=== PATIENT | female | born 1955 | race Caucasian/White ===

== ENCOUNTER 2023-01-25 06:03 | Emergency (ER) | payer MEDICARE, OTHER ==
[2023-01-25] MEDS ORDERED: solu-MEDROL 125 MG, Sterile H2O 10 ml 2 ML IV ONE ×2 (06:20)
[2023-01-25] MEDS ORDERED: Sodium Chloride 0.9% 1000 ML 1,000 ML IV STA (06:20)
[2023-01-25] MEDS ORDERED: PROVENTIL 2.5 MG/3 ML NEB IH ONE ×2 (06:20→06:37)
[2023-01-25] MEDS ORDERED: Sterile H2O 10 ml IJ ONE (06:29)
[2023-01-25] MEDS ORDERED: solu-MEDROL ONE (06:29)
[2023-01-25] MEDS ORDERED: Sodium Chloride 0.9% 1000 ML 1,000 ML ONE (06:30)
--- NOTE | 2023-01-25 06:31 | ERPHSYRPT ---
- History of Present Illness Source: patient Exam Limitations: no limitations Patient Subjective Stated Complaint: Pt reports she has been receiving [place] IV antibiotics via outpatient center at [facility] due to having gram negative pneumonia, unsure of the exact name of the bacteria. Infusions started on 01/21/23 and is also receiving inhaled tobramycin twice a day. She is being treated by Dr Rosa's PARACH[employer]OLDER Hannah Salazar. Feels she has continued to get weak and this morning couldn't hardly get into the car. Triage Nursing Assessment: Pt alert and oriented x3. No apparent respiratory distress. Wheeled to ED cot, transfered from wheelchair to cot with slow/weak gait. Skin w/p/d. Inspiratory and expiratory wheezing auscultated posteriorly throughout bilateral lungs. Hx Tetanus, Diphtheria Vaccination/Date Given: Yes Hx Influenza Vaccination/Date Given: No Hx Pneumococcal Vaccination/Date Given: Yes <BUDDY NJ - Last Filed: 01/25/23 06:46> <SHIVANI FRANCISCO - Last Filed: 01/25/23 09:25> - History of Present Illness Time Seen by Provider: 01/25/23 06:05 Physician History: Patient is here from outpatient infusion center. Patient currently being treated for a gram negative infection of some type. She is receiving IV ertapenem and nebulized tobramycin. This is all being run by a nurse practit constantino out of [facility]. Unclear on exact history as we have no records on this patient. Patient is from [place] and this is the closest placed to drive to. Therefore, we do not have any information on why these antibiotics are being selected, what the actual bacteria is, patient's history. Patient today is on day 5 of her IV antibiotic infusion. She presents to the emergency department from outpatient infusion center for weakness. Her and her adult daughter state that they just do not feel she is getting any better. They feel that she had trouble getting to the car today. As I walk in the room patient is wheezy, resting comfortably on 2 L of oxygen. She is usually on 2 L of oxygen at home. Patient states that she has a greater than 80-year pack history of smoking. (BUDDY NJ) Allergies/Adverse Reactions: No Known Drug Allergies Allergy (Unverified 01/25/23 06:06) Home Medications: ALPRAZolam 1 MG [Xanax 1 mg] 1 mg PO TID 01/25/23 [History] Bupropion HCl Xl 150 mg [Wellbutrin XL 150 MG] 300 mg PO DAILY 01/25/23 [History] Fluticasone/Umeclidin/Vilanter [Trelegy Ellipta 100-62.5-25] See Rx Instructions .ROUTE .COMPLEX 01/25/23 [History] Ipratropium/Albuterol Sulfate [Iprat-Albut 0.5-3(2.5) mg/3 ml] 1 neb IH Q4H 01/25/23 [History] Venlafaxine HCl 37.5 mg [Effexor 37.5 mg] See Rx Instructions .ROUTE .COMPLEX 01/25/23 [History] Travel Risk - International Travel Have you traveled outside of the country in past 3 weeks: No - Coronavirus Screening Are you exhibiting any of the following symptoms?: No Close contact with a COVID-19 positive Pt in past 14-21 Days: No - Vaccine Status Have you recieved a Covid-19 vaccination: Yes Field Support Representative: Moderna - Vaccination Dates Date of 2cond Vaccination (if applicable): ? <BUDDY NJ - Last Filed: 01/25/23 06:46> - Review of Systems Constitutional: No Fever, No Chills Eyes: No Symptoms Ears, Nose, & Throat: No Symptoms Respiratory: Dyspnea, Wheezing, No Cough Cardiac: No Chest Pain, No Edema, No Syncope Abdominal/Gastrointestinal: No Abdominal Pain, No Nausea, No Vomiting, No Diarrhea Genitourinary Symptoms: No Dysuria Musculoskeletal: No Back Pain, No Neck Pain Skin: No Rash Neurological: No Dizziness, No Focal Weakness, No Sensory Changes Psychological: No Symptoms Endocrine: No Symptoms All Other Systems: Reviewed and Negative <BUDDY NJ - Last Filed: 01/25/23 06:46> - Past Medical History Pertinent Past Medical History: Yes Neurological History: No Pertinent History ENT History: No Pertinent History Cardiac History: High Cholesterol, Hypertension Respiratory History: COPD, Pneumonia Endocrine Medical History: No Pertinent History Musculoskeletal History: Arthritis, Osteoporosis GI Medical History: No Pertinent History History: No Pertinent History Psycho-Social History: Anxiety, Depression Female Reproductive Disorders: No Pertinent History - Past Surgical History Past Surgical History: Yes Neuro Surgical History: No Pertinent History Cardiac: No Pertinent History Respiratory: No Pertinent History Gastrointestinal: Appendectomy, Hernia Repair Genitourinary: No Pertinent History Musculoskeletal: Joint Replacement, Orthopedic Surgery Female Surgical History: No Pertinent History Other Surgical History: Left knee. bilateral wrists. right shoulder replaced - Social History Smoking Status: Former smoker How long have you smoked: 45 years Exposure to second hand smoke: No Drug Use: none Patient Lives Alone: Yes <BUDDY NJ - Last Filed: 01/25/23 06:46> - Physical Exam General Appearance: no apparent distress, alert Eye Exam: PERRL/EOMI, eyes nml inspection Ears, Nose, Throat Exam: normal ENT inspection, TMs normal, pharynx normal, moist mucous membranes Neck Exam: normal inspection, non-tender, supple, full range of motion Respiratory Exam: crackles/rales, wheezing, No normal breath sounds, No lungs clear, No respiratory distress Cardiovascular Exam: regular rate/rhythm, normal heart sounds, normal peripheral pulses Gastrointestinal/Abdomen Exam: soft, normal bowel sounds, No tenderness, No mass Back Exam: normal inspection, normal range of motion, No CVA tenderness, No vertebral tenderness Extremity Exam: normal inspection, normal range of motion, pelvis stable Neurologic Exam: alert, oriented x 3, cooperative, normal mood/affect, nml cerebellar function, nml station & gait, sensation nml, No motor deficits Skin Exam: normal color, warm, dry, No rash Lymphatic Exam: No adenopathy SpO2: 94 <BUDDY NJ - Last Filed: 01/25/23 06:46> - Nursing Vital Signs Nursing Vital Signs: Initial Vital Signs Temperature 97.6 F 01/25/23 06:05 Pulse Rate 82 01/25/23 06:05 Respiratory Rate 01/25/23 06:05 Blood Pressure 141/86 01/25/23 06:05 O2 Sat by Pulse Oximetry 94 L 01/25/23 06:05 Pain Scale Pain Intensity 0 - Course Nursing assessment & vital signs reviewed: Yes EKG Interpreted by Me: Sinus Rhythm (Sinus rhythm no ST changes) <BUDDY NJ - Last Filed: 01/25/23 06:46> - Course EKG Interpreted by Me: RATE ([id number]), NORMAL AXIS, NORMAL INTERVALS - CT Exams Chest CT Interpretation: Tele-radiologist Report (Left lower lobe nodule measuring 1.4 x 0.8 cm concerning for malignancy. Right lower lobe 8 mm nodule right upper lobe nodule measuring 4 mm. L2 Schmorl node remote, old T12 compression fracture) <SHIVANI FRANCISCO - Last Filed: 01/25/23 09:25> Ordered Tests: Active Orders 24 hr Category Date Time Status Awning Spreader STAT Care 01/25/23 06:21 Active EKG-ER Only STAT Care 01/25/23 06:20 Active IV Insertion STAT Care 01/25/23 06:20 Active CHEST 1 VIEW (PORTABLE) Stat Exams 01/25/23 06:20 Completed CHEST WITH CONTRAST [CT] Stat Exams 01/25/23 06:35 Completed BLOOD CULTURE Stat Lab 01/25/23 06:45 Received CBC W DIFF Stat Lab 01/25/23 06:40 Completed CMP Stat Lab 01/25/23 06:20 Completed CULTURE,SPUTUM Stat Lab 01/25/23 08:14 Ordered D-DIMER QUANTITATIVE Stat Lab 01/25/23 06:40 Completed Lactic Acid Stat Lab 01/25/23 06:49 Completed NT PRO BNPII Stat Lab 01/25/23 06:20 Completed PROCALCITONIN Stat Lab 01/25/23 06:20 Completed TROPONIN Q4H Lab 01/25/23 06:40 Completed TROPONIN Q4H Lab 01/25/23 10:30 Ordered TROPONIN Q4H Lab 01/25/23 14:30 Ordered UA W/RFX UR CULTURE Stat Lab 01/25/23 08:14 Received Respiratory Therapy Assessment DAILY RT 01/25/23 06:52 Active Medication Summary Discontinued Medications Generic Name Dose Route Start Last Admin Trade Name Jamirq PRN Reason Stop Dose Admin Albuterol Sulfate 2.5 mg 01/25/23 06:20 01/25/23 06:35 Albuterol Sulfate 2.5 Mg/3 Ml Neb IH 01/25/23 06:21 2.5 mg STAT ONE Administration Albuterol Sulfate Confirm 01/25/23 06:37 Albuterol Sulfate 2.5 Mg/3 Ml Neb Administered 01/25/23 06:38 Dose 2.5 mg IH .STK-MED ONE Albuterol/Ipratropium 3 ml 01/25/23 08:42 01/25/23 08:53 Ipratropium/Albuterol Sulfate 3 Ml Ampul.Neb IH 01/25/23 08:43 3 ml STAT ONE Administration Albuterol/Ipratropium Confirm 01/25/23 08:49 Ipratropium/Albuterol Sulfate 3 Ml Ampul.Neb Administered 01/25/23 08:50 Dose 3 ml IH .STK-MED ONE Methylprednisolone Sodium 0 mg 01/25/23 06:20 01/25/23 06:33 Succinate 125 mg/ Sterile IV 01/25/23 06:21 125 mg Water 2 ml STAT ONE Administration Sodium Chloride 1,000 mls @ 999 mls/hr 01/25/23 06:20 01/25/23 07:42 Sodium Chloride 0.9% 1000 Ml IV 01/25/23 07:20 Infused .Q1H1M STA Infusion Sodium Chloride Confirm 01/25/23 06:30 Sodium Chloride 0.9% 1000 Ml Administered 01/25/23 06:31 Dose 1,000 mls @ ud .ROUTE .STK-MED ONE Methylprednisolone Sodium Succinate Confirm 01/25/23 06:29 Methylprednis Sod Succ 125 Mg/2 Ml Vial Administered 01/25/23 06:30 Dose 125 mg .ROUTE .STK-MED ONE Sterile Water Confirm 01/25/23 06:29 Water For Injection,Sterile 10 Ml Vial Administered 01/25/23 06:30 Dose 10 ml IJ .STK-MED ONE Lab/Rad Data: Laboratory Result Diagrams 01/25/23 06:40 01/25/23 06:20 Laboratory Results 01/25/23 01/25/23 01/25/23 Range/Units 06:49 06:45 06:40 WBC (4.0-10.5) x10^3/uL RBC (4.1-5.4) x10^6/uL Hgb (12.0-16.0) g/dL Hct (35-47) % MCV (78-100) fL MCH (26-32) pg MCHC (32-36) g/dL RDW (11.5-14.0) % Plt Count (150-450) x10^3/uL MPV (7.5-11.0) fL Gran % (36.0-66.0) % Immature Gran % (Auto) (0.00-0.4) % Nucleat RBC Rel Count (0.00-0.1) % Eos # (Auto) (0-0.5) x10^3/uL Immature Gran # (Auto) (0.00-0.03) x10^3u/L Absolute Lymphs (auto) (1.0-4.6) x10^3/uL Absolute Monos (auto) (0.0-1.3) x10^3/uL Absolute Nucleated RBC (0.00-0.01) x10^3u/L Lymphocytes % (24.0-44.0) % Monocytes % (0.0-12.0) % Eosinophils % (0.00-5.0) % Basophils % (0.0-0.4) % Absolute Granulocytes (1.4-6.9) x10^3/uL Basophils # (0-0.4) x10^3/uL D-Dimer (0.0-0.50) mg/L Sodium (137-145) mmol/L Potassium (3.5-5.1) mmol/L Chloride (98-107) mmol/L Carbon Dioxide (22-30) mmol/L Anion Gap (5-15) MEQ/L BUN (7-17) mg/dL Creatinine (0.52-1.04) mg/dL Estimated GFR ML/MIN Glucose (74-106) mg/dL Lactic Acid 1.0 (0.4-2.0) Calcium (8.4-10.2) mg/dL Total Bilirubin (0.2-1.3) mg/dL AST (14-36) U/L ALT (0-35) U/L Alkaline Phosphatase (38-126) U/L Troponin I < 0.012 (0.000-0.034) ng/mL NT-Pro-B Natriuret Pep (<300) pg/mL Serum Total Protein (6.3-8.2) g/dL Albumin (3.5-5.0) g/dL Procalcitonin (0.030-0.080) ng/mL Influenza Type A Ag NEGATIVE (NEGATIVE) Influenza Type B Ag NEGATIVE (NEGATIVE) RSV (PCR) NEGATIVE (NEGATIVE) SARS-CoV-2 (PCR) NEGATIVE (NEGATIVE) 01/25/23 01/25/23 01/25/23 Range/Units 06:40 06:40 06:20 WBC 8.1 (4.0-10.5) x10^3/uL RBC 4.18 (4.1-5.4) x10^6/uL Hgb 11.5 L (12.0-16.0) g/dL Hct 37.8 (35-47) % MCV 90.4 (78-100) fL MCH 27.5 (26-32) pg MCHC 30.4 L (32-36) g/dL RDW 13.8 (11.5-14.0) % Plt Count 200 (150-450) x10^3/uL MPV 13.2 H (7.5-11.0) fL Gran % 57.5 (36.0-66.0) % Immature Gran % (Auto) 0.2 (0.00-0.4) % Nucleat RBC Rel Count 0.0 (0.00-0.1) % Eos # (Auto) 0.39 (0-0.5) x10^3/uL Immature Gran # (Auto) 0.02 (0.00-0.03) x10^3u/L Absolute Lymphs (auto) 2.10 (1.0-4.6) x10^3/uL Absolute Monos (auto) 0.86 (0.0-1.3) x10^3/uL Absolute Nucleated RBC 0.00 (0.00-0.01) x10^3u/L Lymphocytes % 25.8 (24.0-44.0) % Monocytes % 10.6 (0.0-12.0) % Eosinophils % 4.8 (0.00-5.0) % Basophils % 1.1 (0.0-0.4) % Absolute Granulocytes 4.68 (1.4-6.9) x10^3/uL Basophils # 0.09 (0-0.4) x10^3/uL D-Dimer 0.91 H* (0.0-0.50) mg/L Sodium 140 (137-145) mmol/L Potassium 3.9 (3.5-5.1) mmol/L Chloride 102 (98-107) mmol/L Carbon Dioxide 29 (22-30) mmol/L Anion Gap 12.5 (5-15) MEQ/L BUN 14 (7-17) mg/dL Creatinine 0.68 (0.52-1.04) mg/dL Estimated GFR > 60.0 ML/MIN Glucose 104 (74-106) mg/dL Lactic Acid (0.4-2.0) Calcium 8.7 (8.4-10.2) mg/dL Total Bilirubin 0.30 (0.2-1.3) mg/dL AST 26 (14-36) U/L ALT 20 (0-35) U/L Alkaline Phosphatase 95 (38-126) U/L Troponin I (0.000-0.034) ng/mL NT-Pro-B Natriuret Pep 41.5 (<300) pg/mL Serum Total Protein 7.3 (6.3-8.2) g/dL Albumin 4.0 (3.5-5.0) g/dL Procalcitonin 0.047 (0.030-0.080) ng/mL Influenza Type A Ag (NEGATIVE) Influenza Type B Ag (NEGATIVE) RSV (PCR) (NEGATIVE) SARS-CoV-2 (PCR) (NEGATIVE) - Progress Progress: improved Counseled pt/family regarding: lab results, diagnosis, need for follow-up, rad results <BUDDY NJ - Last Filed: 01/25/23 06:46> <SHIVANI FRANCISCO - Last Filed: 01/25/23 09:25> - Progress Progress Note: 01/25/23 06:30 Differential diagnosis includes electrolyte abnormality, NSTEMI, changing pneumonia versus PE. UTI causing weakness. Given all of this we will do a full septic work-up on the patient including blood cultures, sputum cultures, procalcitonin lactic acid EKG troponin, other basic labs. We will give fluids, breathing treatment, steroids for patient's symptoms. 01/25/23 06:47 Labs and imaging pending at this point in time. Plan for close follow-up on these. Transfer of care to Dr. Francisco at 7 am. He will follow-up on all labs and imaging, reexamine the patient disposition decision per this. (BUDDY NJ) Patient is a 67-year-old female [facility]. Patient initially evaluated by Dr. Nj. Patient endorsed to Dr. Francisco at approximately 7 AM. Work-up in progress. Physical exam reveals a 67-year-old female lying in bed. Nasal cannula intact. Patient in no distress. Patient states she has a history of gram-negative pneumonia. Patient currently receiving IV nebulized antibiotic. Testing ordered includes EKG which shows normal sinus rhythm. CBC CMP ordered. Both CBC CMP are normal. COVID-negative. Chest x-ray reviewed by Dr. Nj. Lactic acid negative. BNP within normal limits. Procalcitonin negative. Initial troponin negative. D-dimer positive 0.91. CTA reveals a left lower lobe lung nodule measuring 1.4 cm by 0.8 cm. Also observed is a right lower lobe 8 mm nodule and a right upper lobe 4 mm nodule. Patient received Solu- Medrol and albuterol nebulization treatment prior to my arrival. Patient ambulated in our ED. Patient became significantly hypoxic during ambulation wh ile wearing 2 L nasal cannula. Nurse reports patient desatted down to 87%. Oxygen nasal cannula increased to 5 L. O2 sat currently is 97%. Patient reports that her generalized weakness worse with exertion. Patient's generalized weakness may be in part due to profound hypoxia with exertion. No PE observed on CT chest. We will admit for further evaluation and treatment of profound hypoxia and suspicious lung nodule concerning for possible malignancy. Family prefers transfer to [facility]. Transfer pending Portions of this note were created with voice recognition technology. There may be grammatical, spelling, punctuation or sound alike errors 01/25/23 08:52 01/25/23 09:04 Patient and family updated on the findings observed on today's CT a chest. They are aware that there is a nodule concerning for malignancy at the left lower lobe of her lung. They understand that this will require further work-up. 01/25/23 09:[address] Nino hospitalist at [facility] who accepts transfer. Plan of care discussed with patient and daughter. They agree to tr ansfer to [facility] for further evaluation and treatment. Patient reassessed. Patient now resting comfortably. Dr. Nino at [facility] accepts transfer for further evaluation and treatment of generalized weakness and profound hypoxia possibly due to COPD exacerbation. However patient will require further work-up regarding the suspicious nodule observed on her left lower lobe of her lung. Complexity of problem addressed is high, severe exacerbation or threat to bodily function with a hypoxia of 87% on nasal cannula requiring immediate treatment with nebulized albuterol No critical care time Complexity of data reviewed and analyzed is extensive. Laboratory work-up reviewed and independently analyzed by Dr. Francisco. EKG independently reviewed by Dr. Francisco. CTA chest report reviewed documented and conveyed to patient and family. Plan of care discussed with Dr. Nino hospitalist at [facility] who accepts transfer. Risk of complication and or risk morbidity/mortality patient management is high. Patient received nebulizer treatment. Patient also requires hospitalization in this case transfer to higher level of care for further evaluation and treatment of critical hypoxia and profound generalized weakness. Patient will also require work-up regarding suspicious lung nodule observed on today's CTA chest. Family agrees to transfer to [facility] for further evaluation and treatment. Plan of care established via shared decision making. Vitals currently stable. Portions of this note were created with voice recognition technology. There may be grammatical, spelling, punctuation or sound alike errors (SHIVANI FRANCISCO) Medical Desision Making - Independent Historian Additional History obtained from: Child - Diagnostic Testing Diagnostic test were ordered, analyzed, and reviewed by me: Yes Radiological Interpretation: Interpreted by me, Reviewed by me <BUDDY NJ - Last Filed: 01/25/23 06:46> - Departure Critical Care Time: No <BUDDY NJ - Last Filed: 01/25/23 06:46> - Departure Departure Disposition: Transfer <SHIVANI FRANCISCO - Last Filed: 01/25/23 09:25> - Departure Clinical Impression: Weakness, Shortness of breath, Pneumonia, Hypoxia, COPD exacerbation, Lung malignancy, L2 Schmorl node, Remote T12 compression fracture Condition: Stable Referrals: LARRY PARISI [Primary Care Provider] - Follow up/PCP as directed Instructions: Chronic Obstructive Pulmonary Disease
[2023-01-25 06:50] LABS: Absolute Neutrophil Ct (ANC) 4.68 x10^3/uL (1.4-6.9); BASOPHIL % 1.1 % (0.0-0.4); Basophil (Absolute #) 0.09 x10^3/uL (0-0.4); Eosinophil % 4.8 % (0.00-5.0); Eosinophil (Absolute #) 0.39 x10^3/uL (0-0.5); Hematocrit 37.8 % (35-47); Hemoglobin 11.5 g/dL (12.0-16.0); IMMATURE GRAN # 0.02 x10^3u/L (0.00-0.03); IMMATURE GRAN % 0.2 % (0.00-0.4); Lymphocytes % 25.8 % (24.0-44.0); Mean Cell Volume 90.4 fL (78-100); Mean Corpuscular Hemoglobin 27.5 pg (26-32); Mean Corpuscular Hgb Concent. 30.4 g/dL (32-36); Mean Platelet Volume 13.2 fL (7.5-11.0); Monocyte (Absolute #) 0.86 x10^3/uL (0.0-1.3); Monocytes % 10.6 % (0.0-12.0); Neutrophil % 57.5 % (36.0-66.0); Platelet Count 200 x10^3/uL (150-450); Red Blood Count 4.18 x10^6/uL (4.1-5.4); Red Cell Distribution Width 13.8 % (11.5-14.0); White Blood Count 8.1 x10^3/uL (4.0-10.5)
[2023-01-25 07:20] LABS: ALKALINE PHOSPHATASE 95 U/L (38-126); ANION GAP 12.5 MEQ/L (5-15); BLOOD UREA NITROGEN 14 mg/dL (7-17); CHLORIDE 102 mmol/L (98-107); Calcium 8.7 mg/dL (8.4-10.2); Carbon Dioxide 29 mmol/L (22-30); Creatinine 1 0.68 mg/dL (0.52-1.04); EST GLOMERULAR FILTRATION RATE > 60.0 ML/MIN; Glucose 104 mg/dL (74-106); NT PRO BNPII 41.5 pg/mL (<300); PROCALCITONIN 0.047 ng/mL (0.030-0.080); Potassium 3.9 mmol/L (3.5-5.1); SGOT/AST 26 U/L (14-36); SGPT/ALT 20 U/L (0-35); SODIUM 140 mmol/L (137-145); Total Protein 7.3 g/dL (6.3-8.2)
[2023-01-25 07:25] LABS: INFLUENZA A NEGATIVE (NEGATIVE); INFLUENZA B NEGATIVE (NEGATIVE); RESPIRATORY SYNCTIAL VIRUS NEGATIVE (NEGATIVE); SARS-CoV-2 Xpert Express NEGATIVE (NEGATIVE)
[2023-01-25] MEDS ORDERED: DUONEB 0.5-3 MG/3 ml Neb IH ONE ×2 (08:42→08:49)
--- NOTE | 2023-01-25 08:44 | XRAY ---
Indication: Short of breath. Comparison: None Portable chest hyperinflated and clear. Heart not enlarged. Bony thorax intact with osteopenia, mild degenerative changes, and right shoulder arthroplasty. Impression: Nonacute hyperinflated chest with chronic features.
--- NOTE | 2023-01-25 08:44 | XRAY ---
Indication: Short of breath. Elevated d-dimer. Lung infection. Multiple contiguous axial images obtained through the chest using 80 cc Isovue 370 contrast and PE protocol. Comparison: None Good opacification of the pulmonary arteries to include the lobar and segmental branches. No pulmonary embolus. Heart not enlarged. Aorta minimally arteriosclerotic without aneurysm/dissection. No pathologic mediastinal/hilar lymphadenopathy. Lungs demonstrates diffuse centrilobular pulmonary emphysema with bibasilar subsegmental atelectasis/scarring. Superior segment left lower lobe demonstrates 1.4 x 0.8 cm peripheral noncalcified nodularity with irregular/spiculated margins concerning for malignancy. Right lower lobe demonstrates 8 mm round noncalcified indeterminant nodule (image 44, series 3). Right upper lobe demonstrates smaller 4 mm round noncalcified indeterminant nodule (image 14, series 3). No infiltrate or effusion. Bony thorax intact with osteopenia, mild/moderate degenerative changes throughout the visualized spine, remote appearing T12 compression fracture with 50-75% height loss, small superior L2 Schmorl node, and right shoulder arthroplasty. Limited upper abdomen including adrenal glands are unremarkable. Impression: 1. Negative pulmonary embolus. No acute cardiopulmonary abnormalities. 2. Left lower lobe noncalcified irregular/spiculated nodularity concerning for malignancy. Smaller right upper and right lower lobe indeterminate noncalcified nodules. 3. Chronic findings including pulmonary emphysema, arteriosclerotic disease, and chronic bony findings.
[2023-01-25 08:57] LABS: Appearance Clear (Clear); Bacteria None Seen /HPF (None Seen); Bilirubin Negative (Negative); Blood Negative (Negative); Epithelial Cells None Seen /HPF (None Seen); Glucose, Urine Negative (Negative); Hyaline Casts NONE SEEN /LPF (0-2); Ketones Negative (Negative); Leukocyte Esterase Negative (Negative); Nitrite Negative (Negative); Protein,Urine Dip Negative (Negative); RBC 0-2 /HPF (0-5); Urobilinogen 0.2 mg/dL (0.2); WBC 0-2 /HPF (0-5)
[2023-01-25 09:43] LABS: ADD URINE CULTURE? NO (NO)
[2023-01-25 11:04] VITALS: BP 122/76; PULSE 85; O2SAT 90
== END 2023-01-25 11:53 | disposition short-term general hospital (02) ==
LOC: ED 06:03
DX: J15.9 Unspecified bacterial pneumonia (principal); R06.02 Shortness of breath; R09.02 Hypoxemia; J44.1 Chronic obstructive pulmonary disease with (acute) exacerbation; R53.1 Weakness; C34.90 Malignant neoplasm of unspecified part of unspecified bronchus or lung; M51.46 Schmorl's nodes, lumbar region; M48.54XD Collapsed vertebra, not elsewhere classified, thoracic region, subsequent encounter for fracture with routine healing; E78.5 Hyperlipidemia, unspecified; I10 Essential (primary) hypertension; Z79.899 Other long term (current) drug therapy; Z99.81 Dependence on supplemental oxygen; Z20.828 Contact with and (suspected) exposure to other viral communicable diseases
CPT/HCPCS: 0241U; 36000; 36415; 71045; 71260; 80053; 81001; 83605; 83880; 84145; 84484; 85025; 85379; 87040; 93005; 93041; 94640; 96374; 99285; J1335; J2930; J7609; A9270-GY